=== PATIENT | female | born 1970 | race Hispanic/Latino ===

== ENCOUNTER 2021-02-15 07:20 | Day surgery (SDC) | payer OTHER ==
[~2021-02-15] VITALS: Ht 160 cm; Wt 88.5 kg
[~2021-02-15 07:20] MED LIST: ALL DAY ALLG10 MG PO; OMNI-PAC300 MG PO; PRILOSEC20 MG/CAP PO
[2021-02-15 10:33] VITALS: BP 124/72
== END 2021-02-15 10:48 | disposition home or self-care (01) ==
LOC: ENDO 07:20 → ORM 09:45 → ENDO 09:45 → ORM 10:50
PROVIDERS: ATTEND Surgery
DX: K64.8 Other hemorrhoids (principal)

== ENCOUNTER 2021-04-11 12:53 | Observation (INO) | payer OTHER ==
[~2021-04-11] VITALS: Ht 165.1 cm; Wt 90.0 kg
[2021-04-12] VITALS (8 sets, daily range): BP systolic 109–128; BP diastolic 55–62
--- NOTE | 2021-04-12 13:20 | NUR ---
PT ARRIVED VIA STRETCHER WITH RN DWAYNE, RN CARMELLA. ORIENTATED PT TO ROOM. ASSESSMENT ALLOWED AT THIS TIME. LUNG SOUNDS ARE CLEAR UPPER/LOWER LOBES. HEART SOUNDS ARE REGULAR. BOWEL SOUNDS ACTIVE X4. FALL/SAFTEY PRECAUTIONS IN PLACE. LAC 20G WITH LR PER EMAR ORDER. PT A&OX3. NECK HAS SURGICAL SCARRING CLEAN AND DRY. PT STATES NO PAIN AT THIS TIME. CALL LIGHT WITHIN REACH. PRIMARY LANGUAGE IS GUINEAN BUT ALSO SPEAKS AND UNDERSTANDS KITTITIAN.
--- NOTE | 2021-04-12 16:00 | NUR ---
PT EDUCATED ON IS AT THIS TIME.
--- NOTE | 2021-04-12 22:07 | NUR ---
PATIENT RESTING IN BED AT THIS TIME-UP TO THE BR TO VOID WITHOUT ANY DIFFICULTY. PATIENT IS STEADY ON HER FEET. MEDICATED FOR POST-OP THROAT PAIN WITH PERCOCET 5/325MG PO FOR 4/10 PAIN SCALE. IVF LR PATENT AND INFUSING VIA RAC SITE AT 100CC/HR. SITE REMAINS HEALTHY AT THIS TIME. SCD'S IN PLACE. ENCOURAGED USE OF IS Q1H WHILE AWAKE. SAFETY PRECAUTIONS REINFORCED. CALL LIGHT IN REACH. WILL CONT TO MONITOR.
[2021-04-13 00:03] VITALS: BP 98/51
--- NOTE | 2021-04-13 00:44 | NUR ---
PATIENT RESTING IN BED-POSITIONED ON LEFT SIDE WITH EYES CLOSED. RESPS ARE EVEN AND UNLABORED. IVF PATENT AND INFUSING RAC SITE ORDERED. CALL LIGHT IN REACH. WILL CONT TO MONITOR.
--- NOTE | 2021-04-13 03:26 | NUR ---
PATIENT RESTING IN BED AT THIS TIME WITH EYES CLOSED. RESPS ARE EVEN AND UNLABORED. IVF PATENT AND INFUSING VIA LAC SITE AT 100CC/HR. SITE REMAINS HEALTHY. CALL LIGHT IN REACH. WILL CONT TO MONITOR.
[2021-04-13 04:00] VITALS: BP 102/52
[2021-04-13 06:51] VITALS: BP 88/51
[2021-04-13 08:00] VITALS: BP 112/55
[2021-04-13 08:41] VITALS: BP 112/55
[2021-04-13] MEDS ORDERED: PERCOCET 5/321 COMBO PO (09:53)
[2021-04-13] MEDS ORDERED: SYNTHROID150 MCG PO (09:55)
[2021-04-13 11:19] VITALS: BP 103/52
== END 2021-04-13 12:05 | disposition home or self-care (01) ==
LOC: MS2 04-12 08:51
PROVIDERS: ADMIT Surgery; ATTEND Surgery
DX: C73 Malignant neoplasm of thyroid gland (principal)
CPT/HCPCS: C9290